=== PATIENT | female | born 1995 | race Caucasian/White ===

== ENCOUNTER → 2024-07-12 10:57 | Outpatient (REF) | payer BC, SELFPAY | LOC: RAD 10:57 | PROVIDERS: ATTENDING PHYSICIAN Internal Medicine; FAMILY PHYSICIAN Physician Assistant Medical | DX: H20.029 Recurrent acute iridocyclitis, unspecified eye (principal); Z15.89 Genetic susceptibility to other disease | CPT/HCPCS: 71046 ==